=== PATIENT | male | born 1980 | race Caucasian/White ===

== ENCOUNTER 2016-07-17 19:50 | Emergency (ER) | payer MEDICAID, OTHER ==
[~2016-07-17] VITALS: Ht 170.2 cm; Wt 80.5 kg
[2016-07-17 19:55] VITALS: Ht 170.2 cm; Wt 80.5 kg
--- NOTE | 2016-07-17 22:08 | RADRPT ---
PROCEDURE: Chest. CLINICAL INDICATION: Chest pain. TECHNIQUE: Single frontal view of the chest was obtained. COMPARISON: None. FINDINGS: The cardiac silhouette is within normal limits. The aortic arch is unremarkable. There is no focal consolidation, vascular congestion or pleural effusion. There is no pneumothorax. IMPRESSION: No evidence for active cardiopulmonary disease. .Mc Evans MD, MD Date Time Electronically viewed and signed by .cM Evans MD, MD on 07/17/2016 22:08 .T/
[2016-07-17] MEDS ORDERED: IBUP-1542 PO (22:41)
--- NOTE | 2016-07-17 22:54 | ERD ---
ER Documentation Chief Complaint Date/Time DATE: 07/17/16 TIME: 22:43 Chief Complaint chest pain x 1 week , pain increases on deep breathing HPI This is a 36-year-old male presents to the ER with chest pain that started about a week and a half ago. Patient states that chest pain is worse with inspiration. Complete is described as sharp and radiates to his back. He denies any shortness of breath. He chest pain is nonexertional. He denies any palpitations. Patient has been working out every day and has not had any chest pain when working out. Patient denies any abdominal pain. He denies any cough or cold symptoms. He denies any fevers or chills. He has not had any falls or trauma. ROS 12 point review of systems was done, all negative except per HPI. Medications Home Meds Active Scripts Ibuprofen* (Ibuprofen*) 600 Mg Tablet, 600 MG PO Q6 for 7 Days, TAB Prov:CHAZ VELEZ 07/17/16 Allergies Allergies: Coded Allergies: No Known Allergy (Unverified , 07/17/16) PMhx/Soc Medical and Surgical Hx: pt denies Medical Hx, pt denies Surgical Hx Hx Alcohol Use: No Hx Substance Use: No Hx Tobacco Use: No Smoking Status: Never smoker Physical Exam Vitals Vital Signs Date Time Temp Pulse Resp B/P Pulse Ox O2 Delivery O2 Flow Rate FiO2 07/17/16 19:55 97.7 80 20 139/73 99 Physical Exam GENERAL: The patient is well developed and appropriate for usual state of health , in no apparent distress. HEENT: Atraumatic. Conjunctivae are pink. Pupils equal, round, and reactive to light. Extraocular muscles are grossly intact. Bilateral tympanic membranes are clear with no evidence of erythema, effusion or dulling of the light reflex. The oropharynx is clear with no erythema or exudates. NECK: C-spine is soft and supple. There is no cervical lymphadenopathy. CHEST: Clear to auscultation bilaterally. There are no rales, wheezes or rhonchi. HEART: Regular rate and rhythm. No murmurs, clicks, rubs or gallops. ABDOMEN: Soft, nontender and nondistended. Good bowel sounds. No rebound or guarding. No gross peritonitis. No gross organomegaly or masses. No Doyle sign or McBurney point tenderness. No pulsatile masses. BACK: No midline or flank tenderness. EXTREMITIES: Equal pulses bilaterally. There is no peripheral clubbing, cyanosis or edema. No focal swelling or erythema. Full range of motion. Grossly neurovascularly intact. NEURO: Alert and oriented. Cranial nerves II through XII are intact. Motor strength in all 4 extremities with 5/5 strength. Sensation grossly intact. Normal speech and gait. SKIN: There is no apparent rash or petechia. The skin is warm and dry. Procedures/MDM Differential diagnosis includes but is not limited to; STEMI, dissection, pneumothorax, PE, esophageal rupture, tamponade, pneumonia, pericarditis, GERD, musculoskeletal, endocarditis, anxiety. EKG was done [address] elevation or T-wave inversion. EKG was read by Dr. Espinal. At this time etiology of chest pain is unknown. Suspicion for acute cardiac etiology is low. Patient is afebrile, well-appearing he is not hypoxic in any respiratory distress. Patient will be sent home with ibuprofen. Needs to follow-up with his primary care doctor within 1-2 days return to ER sooner if symptoms worsen. My medical decision making was shared with the patient he understands and agrees with plan. Departure Diagnosis: Primary Impression: Chest pain Condition: Stable Patient Instructions: Chest Pain, Uncertain Cause Additional Instructions: Call your primary care doctor TOMORROW for an appointment during the next 1-2 days.See the doctor sooner or return here if your condition worsens before your appointment time. CHAZ VELEZ July 17, 2016 22:53
[2016-07-17 22:59] VITALS: BP 135/70; PULSE 78; RESP 18
== END 2016-07-17 22:59 | disposition home or self-care (01) ==
LOC: FTE 19:50
DX: R07.9 Chest pain, unspecified (principal)
CPT/HCPCS: 71010; 93005; Z7502

== ENCOUNTER 2017-05-23 17:41 | Emergency (ER) | END 2017-05-23 21:18 | disposition home or self-care (01) ==

== ENCOUNTER 2017-09-09 20:09 | Emergency (ER) | END 2017-09-10 03:20 | disposition home or self-care (01) ==

== ENCOUNTER 2018-08-13 20:10 | Emergency (ER) | payer OTHER ==
[~2018-08-13] VITALS: Ht 160 cm; Wt 80.0 kg
[~2018-08-13 20:10] MED LIST: FAMO-96 PO; IBUP-1542 PO; NAPR-985 PO
[2018-08-13 20:12] VITALS: BP 119/80; PULSE 79; RESP 19; Ht 160 cm; Wt 80.0 kg
--- NOTE | 2018-08-14 16:46 | ERD ---
ER Documentation Chief Complaint Chief Complaint HEADACHE WITH DRY MOUTH X1WK; HPI History of Present Illness: 38-year-old male who denies any past medical history coming in today with complaint of dry mouth for 1 week. Patient denies headache as previously reported on chief complaint. Patient denies any use of ov [id number] or prescription medications. Patient denies using tobacco or drugs. Patient denies any type of dental concerns. Patient denies dry eyes. Patient denies polyuria, + polydipsia. Patient reports he came to emergency department because someone told him that this could be a sign of diabetes. Reports he is drinking approximately 1 gallon of water a day. At home pharmacological/nonpharmacological treatment for symptoms: Denies Denies social concerns; Denies recent foreign travel ROS All systems reviewed and are negative except as per history of present illness. Medications Home Meds Active Scripts Famotidine* (Pepcid*) 20 Mg Tablet, 20 MG PO BID for 10 Days, #20 TAB Prov:MARISELA,ONI 09/10/17 Naproxen* (Naprosyn*) 500 Mg Tablet, 500 MG PO BID PRN for PAIN AND/OR INFLAMMATION for 10 Days, #20 TAB Prov:MARISELA,ONI 09/10/17 Ibuprofen* (Ibuprofen*) 600 Mg Tablet, 600 MG PO Q6 for 7 Days, TAB Prov:CHAZ VELEZ 07/17/16 Allergies Allergies: Coded Allergies: No Known Allergy (Unverified , 07/17/16) PMhx/Soc Medical and Surgical Hx: pt denies Medical Hx, pt denies Surgical Hx History of Surgery: No Anesthesia Reaction: No Hx Neurological Disorder: No Hx Respiratory Disorders: No Hx Cardiac Disorders: No Hx Psychiatric Problems: No Hx Miscellaneous Medical Probl: No Hx Alcohol Use: No Hx Substance Use: No Hx Tobacco Use: No Smoking Status: Never smoker FmHx Family History: No diabetes, No coronary disease Physical Exam Vitals Vital Signs Date Temp Pulse Resp B/P (MAP) Pulse Ox O2 O2 Flow FiO2 Time Delivery Rate 08/13/18 98.6 79 19 119/80 98 20:12 (93) Physical Exam Const: No acute distress Head: Atraumatic Eyes: Normal Conjunctiva ENT: Normal External Ears, Nose and Mouth. Moist mucous membranes. Neck: Full range of motion. No meningismus. Resp: Clear to auscultation bilaterally Cardio: Regular rate and rhythm, no murmurs Abd: Soft, non tender, non distended. Normal bowel sounds Skin: No petechiae or rashes Back: No midline or flank tenderness Ext: No cyanosis, or edema Neur: Awake and alert Psych: Normal Mood and Affect Results 24 hrs Laboratory Tests Test 08/13/18 21:03 Urine Color YELLOW Urine Clarity CLEAR Urine pH 6.0 Urine Specific [place] 1.030 Urine Ketones NEGATIVE mg/dL Urine Nitrite NEGATIVE mg/dL Urine Bilirubin NEGATIVE mg/dL Urine Urobilinogen NEGATIVE mg/dL Urine Leukocyte Esterase NEGATIVE Callie/ul Urine Microscopic RBC 1 /HPF Urine Microscopic WBC 1 /HPF Urine Mucus FEW /HPF Urine Hemoglobin 1+ mg/dL Urine Glucose NEGATIVE mg/dL Urine Total Protein NEGATIVE mg/dl Procedures/MDM ED course includes a thorough examination and history. Medications: Imaging: Labs: Urinalysis Low suspicion for life-threatening medical emergency. Otherwise healthy patient presenting with constellation of symptoms likely representing xerostomani as characterized by history, physical exam findings, lab findings. Urinalysis negative for glucose or signs of infection. Patient reassessment 2146: Results of labs discussed. Printout given for [id number] mouthwash (Biotene). patient hemodynamically stable. No respiratory distress, otherwise relatively well appearing and nontoxic. Disposition given. Patient educated on diagnoses, prescriptions, follow-up care, return precautions. Strict return precautions given for worsening condition; questions answered discharge. Disposition for discharge with followup in 2 days with PCP/clinic. Departure Diagnosis: Primary Impression: Xerostomia Condition: Stable Patient Instructions: Diabetes: Exams and Tests Referrals: [facility] YOU HAVE RECEIVED A MEDICAL SCREENING EXAM AND THE RESULTS INDICATE THAT YOU DO NOT HAVE A CONDITION THAT REQUIRES URGENT TREATMENT IN THE EMERGENCY DEPARTMENT. FURTHER EVALUATION AND TREATMENT OF YOUR CONDITION CAN WAIT UNTIL YOU ARE SEEN IN YOUR DOCTORS OFFICE WITHIN THE NEXT 1-2 DAYS. IT IS YOUR RESPONSIBILITY TO MAKE AN APPOINTMENT FOR FOLOW-UP CARE. IF YOU HAVE A PRIMARY DOCTOR --you should call your primary doctor and schedule an appointment IF YOU DO NOT HAVE A PRIMARY DOCTOR YOU CAN CALL OUR PHYSICIAN REFERRAL HOTLINE AT IF YOU CAN NOT AFFORD TO SEE A PHYSICIAN YOU CAN CHOSE FROM THE FOLLOWING [facility] [address] [facility]. [facility] [address] [facility]. [facility] [address] [facility] [address] [facility] [address] [facility]. [facility]. [address] [facility]. [facility] YOU HAVE RECEIVED A MEDICAL SCREENING EXAM AND THE RESULTS INDICATE THAT YOU DO NOT HAVE A CONDITION THAT REQUIRES URGENT TREATMENT IN THE EMERGENCY DEPARTMENT. FURTHER EVALUATION AND TREATMENT OF YOUR CONDITION CAN WAIT UNTIL YOU ARE SEEN IN YOUR DOCTORS OFFICE WITHIN THE NEXT 1-2 DAYS. IT IS YOUR RESPONSIBILITY TO MAKE AN APPOINTMENT FOR FOLOW-UP CARE. IF YOU HAVE A PRIMARY DOCTOR --you should call your primary doctor and schedule and appointment IF YOU DO NOT HAVE A PRIMARY DOCTOR YOU CAN CALL OUR PHYSICIAN REFERRAL HOTLINE AT . IF YOU CAN NOT AFFORD TO SEE A PHYSICIAN YOU CAN CHOSE FROM THE FOLLOWING [facility] INSTITUTIONS: [facility] [address] [place] [address] [facility] [address] [place] [address] [facility] [address] [place] [address] Additional Instructions: Thank you very much for allowing us to participate in your care. Your health and safety is our top priority at [facility]. It is important to read all discharge instructions and education provided in your discharge packet. *There is no glucose in your urine at this time, which means that hyperglycemia is not present at a high enough rate to cause glucose in your urine. If you want further diabetes testing, you will need to see a primary care doctor.* Call your primary care doctor TOMORROW for an appointment during the next 2-4 days. If the symptoms get worse and your provider is unavailable, return to the Emergency Department immediately. BRENDA BOURNE NP Aug 14, 2018 16:46
== END 2018-08-13 22:05 | disposition home or self-care (01) ==
LOC: FTE 20:10
DX: K11.7 Disturbances of salivary secretion (principal)
CPT/HCPCS: 81001; Z7502; 99283